=== PATIENT | male | born 1990 | race Two or more races ===

== ENCOUNTER 2017-07-10 03:41 | Emergency (ER) | payer SELFPAY ==
[~2017-07-10] VITALS: Ht 167.6 cm; Wt 63.5 kg
[2017-07-10] MEDS ORDERED: HYDROmorphone 2 MG/ML VIAL IV ONE ×2 (04:00→06:00)
[2017-07-10] MEDS ORDERED: ONDANSETRON PF 4 MG/2 ML VIAL. IV ONE ×2 (04:00→06:00)
[2017-07-10] MEDS ORDERED: IV NORMAL SALINE 1000ML BAG 1,000 ML IV ONE ×2 (04:00→06:00)
[2017-07-10 04:22] LABS: BASO % 0 % (0-3); EOS % 1 % (0-3); HEMATOCRIT 47.8 % (39.0-53.0); HEMOGLOBIN 16.1 g/dL (13.0-17.5); LYMPH # 3.3 x10^3/uL (1.0-4.8); LYMPH % 40 % (24-48); MEAN CORPUSCULAR HEMOGLOBIN 31 pg (25-35); MEAN CORPUSCULAR HGB CONC 34 g/dL (31-37); MEAN CORPUSCULAR VOLUME 91 fL (79-100); MONO % 8 % (0-9); NEUT % 50 % (31-73); PLATELET COUNT 239 x10^3/uL (140-400); RED BLOOD COUNT 5.26 x10^6/uL (4.30-5.70); RED CELL DISTRIBUTION WIDTH 13.4 % (11.5-14.5); WHITE BLOOD COUNT 8.3 x10^3/uL (4.0-11.0)
[2017-07-10 04:40] LABS: CREATININE 1.2 mg/dL (0.7-1.3); GFR 73.2; POTASSIUM 3.5 mmol/L (3.5-5.1)
--- NOTE | 2017-07-10 04:44 | RAD ---
INDICATION: Testicular pain. COMPARISON: None. TECHNIQUE: Grayscale, color and spectral doppler ultrasound images obtained of the scrotum. FINDINGS: Right Testicle: 31 x 52 x 18 mm. Vascular flow is identified. Left Testicle: 47 x 19 x 31 mm. Vascular flow is identified. During the exam the testicles were retracting towards inguinal canal intermittently. IMPRESSION: 1. Vascular flow is identified to the bilateral testicles. Electronically signed by: Daniel Rehman MD (07/10/2017 4:41 AM) [facility]
[2017-07-10 05:23] LABS: BILIRUBIN,URINE NEGATIVE (NEG); GLUCOSE,URINE NEGATIVE (NEG); NITRITE,URINE NEGATIVE (NEG); PH,URINE 5.5; PROTEIN,URINE NEGATIVE (NEG-TRACE); UROBILINOGEN,URINE 0.2 mg/dL (0.2 mg/dL)
[2017-07-10 05:42] LABS: BACTERIA,URINE FEW /HPF (0-FEW); RBC,URINE TNTC /HPF (0-2)
[2017-07-10 05:43] LABS: SQUAMOUS EPITHELIAL CELL,UR FEW /LPF
[2017-07-10] MEDS ORDERED: KETOROLAC 15 MG/ML VIAL. IV ONE (06:00)
--- NOTE | 2017-07-10 06:19 | PHYS DOC ---
Past Medical History Past Medical History: No Pertinent History Past Surgical History: No Surgical History Alcohol Use: None Drug Use: None Adult General Chief Complaint Chief Complaint: TESTICULAR PAIN OR INJURY HPI HPI Patient is a 26 year old healthy gentleman who presents to the ER today complaining of left testicular pain that started approximately 1 hour prior to arrival. Patient reports that the pain is constant. Patient denies any other symptomatology other than nausea and vomiting times one. Patient has any fevers shakes chills. Patient has any cough cold or runny nose. Patient denies any dysuria frequency urgency or hematuria. Patient denies any trauma to his testicles. Patient denies any penile discharge. Patient reports his last sexual activity was approximate 4 month ago. Patient reports one partner in the last 6 months. Patient has any fevers. Patient denies any history of hypertension, diabetes, liver, lung, kidney problems. Patient reports no history of kidney stones in the past. Patient's physical exam the ER significant for normal testicular exam. Patient' s testes are descended. There is no inguinal hernia. Testes are both vertical. Normal cremasteric reflex. Normal (prehn sign. Review of systems: Constitutional: Denies fever or chills Eyes: Denies change in visual acuity, redness, or eye pain HENT: Denies nasal congestion or sore throat All other review systems are negative except as documented in the history of present illness portion. Physical exam: Constitutional: no acute distress, non-toxic appearance. HENT: Normocephalic, atraumatic, bilateral external ears normal, oropharynx moist, no oral exudates, nose normal. Eyes: PERRLA, EOMI, conjunctiva normal, no discharge. Neck: Normal range of motion, no tenderness, supple, no stridor Cardiovascular:Heart rate regular rhythm Lungs & Thorax: Bilateral breath sounds clear to auscultation Abdomen: Soft nondistended no rebound or guarding no tenderness at McBurney's point, Galindo's sign, patient has normal active bowel sounds, Skin: Warm, dry, no erythema, no rash. Back: No tenderness, no CVA tenderness. Extremities: No tenderness, no cyanosis, no clubbing, ROM intact, no edema. Neurologic: Alert and oriented X 3, normal motor function, normal sensory function, no focal deficits noted. Psychologic: Affect normal, judgement normal, mood normal. Patient's ultrasound is testes which were unremarkable. There was good vascular flow to both testicles. Patient received Dilaudid 1 mg IV to assist him with pain prior to the ultrasound. Reevaluation of the patient after the ultrasound patient is still having a significant amount of pain however now he reports the pain is more in the left lower quadrant as well as his left testicle. Assessment and plan this is a 26-year-old gentleman who presents here today complaining of left testicular pain medication started acutely tonight. Patient' s ultrasound did not reveal any evidence of torsion. Patient had a UA which revealed large amount of red blood cells. Given his symptoms, the RBCs in his urine, the pain is left lower quadrant, in the normal ultrasound of his testes I believe that this patient most likely now has renal colic as the cause of his discomfort. A CT scan of his abdomen pelvis has been ordered. Patient be given a second round of Dilaudid and Toradol and we'll continue to hydrate him. Current Medications Current Medications Current Medications Medications (Trade) Dose Ordered Sig/Marko Start Time Stop Time Status Last Admin Dose Admin Hydromorphone HCl (Dilaudid) 1 mg 1X ONCE 07/10/17 06:00 07/10/17 06:04 DC 07/10/17 06:35 1 MG Ketorolac Tromethamine (Toradol) 15 mg 1X ONCE 07/10/17 06:00 07/10/17 06:04 DC 07/10/17 06:31 15 MG Ondansetron HCl (Zofran) 4 mg 1X ONCE 07/10/17 06:00 07/10/17 06:04 DC 07/10/17 06:33 4 MG Sodium Chloride 1,000 ml @ 1,000 mls/hr 1X ONCE 07/10/17 06:00 07/10/17 06:59 DC 07/10/17 06:44 1,000 MLS/HR Tamsulosin HCl (Flomax) 0.4 mg 1X ONCE 07/10/17 07:30 07/10/17 07:31 DC 07/10/17 07:33 0.4 MG Allergies Allergies Allergies Coded Allergies Type Severity Reaction Last Updated Verified No Known Drug Allergies 07/10/17 No Current Patient Data Vital Signs Vital Signs Date Time Temp Pulse Resp B/P (MAP) Pulse Ox O2 Delivery O2 Flow Rate FiO2 8/12/17 07:30 82 16 115/67 (83) 95 07/10/17 06:30 Room Air 07/10/17 03:46 97.7 97.7 Lab Values Laboratory Tests Test 07/10/17 04:00 07/10/17 05:15 White Blood Count 8.3 x10^3/uL (4.0-11.0) Red Blood Count 5.26 x10^6/uL (4.30-5.70) Hemoglobin 16.1 g/dL (13.0-17.5) Hematocrit 47.8 % (39.0-53.0) Mean Corpuscular Volume 91 fL (79-100) Mean Corpuscular Hemoglobin 31 pg (25-35) Mean Corpuscular Hemoglobin Concent 34 g/dL (31-37) Red Cell Distribution Width 13.4 % (11.5-14.5) Platelet Count 239 x10^3/uL (140-400) Neutrophils (%) (Auto) 50 % (31-73) Lymphocytes (%) (Auto) 40 % (24-48) Monocytes (%) (Auto) 8 % (0-9) Eosinophils (%) (Auto) 1 % (0-3) Basophils (%) (Auto) 0 % (0-3) Neutrophils # (Auto) 4.2 x10^3uL (1.8-7.7) Lymphocytes # (Auto) 3.3 x10^3/uL (1.0-4.8) Monocytes # (Auto) 0.7 x10^3/uL (0.0-1.1) Eosinophils # (Auto) 0.1 x10^3/uL (0.0-0.7) Basophils # (Auto) 0.0 x10^3/uL (0.0-0.2) Sodium Level 142 mmol/L (136-145) Potassium Level 3.5 mmol/L (3.5-5.1) Chloride Level 103 mmol/L (98-107) Carbon Dioxide Level 31 mmol/L (21-32) Anion Gap 8 (6-14) Blood Urea Nitrogen 13 mg/dL (8-26) Creatinine 1.2 mg/dL (0.7-1.3) Estimated GFR (Cockcroft-Gault) 73.2 Glucose Level 137 mg/dL (70-99) H Calcium Level 9.0 mg/dL (8.5-10.1) Urine Collection Type Unknown Urine Color Yellow Urine Clarity Clear Urine pH 5.5 Urine Specific [place] 1.020 Urine Protein Negative mg/dL (NEG-TRACE) Urine Glucose (UA) Negative mg/dL (NEG) Urine Ketones (Stick) Negative mg/dL (NEG) Urine Blood Large (NEG) Urine Nitrite Negative (NEG) Urine Bilirubin Negative (NEG) Urine Urobilinogen Dipstick 0.2 mg/dL (0.2 mg/dL) Urine Leukocyte Esterase Negative (NEG) Urine RBC Tntc /HPF (0-2) Urine WBC 1-4 /HPF (0-4) Urine Squamous Epithelial Cells Few /LPF Urine Bacteria Few /HPF (0-FEW) Urine Mucus Mod /LPF Laboratory Tests 07/10/17 04:00 Laboratory Tests 07/10/17 04:00 EKG EKG [] Radiology/Procedures Radiology/Procedures [] Course & Med Decision Making Course & Med Decision Making Pertinent Labs and Imaging studies reviewed. (See chart for details) 0600 the patient was signed out to me by Dr. Calhoun , we discussed the case. We are waiting on CT scan results. Testicular ultrasound was normal. CT scan read by the radiologist shows a 2 mm distal left ureter stone with hydro -. I feel this finding does explain the patient's symptoms. 0720 I revisited the patient. He states his pain is gone. We discussed his diagnosis and discussed the plan. He is stable for discharge. See instructions for plan. [] Dragon Disclaimer Dragon Disclaimer This electronic medical record was generated, in whole or in part, using a voice recognition dictation system. Departure Departure Impression: Primary Impression: Left ureteral stone Additional Impression: Ureteral colic Disposition: HOME, SELF-CARE Condition: IMPROVED Referrals: NO PCP (PCP) Patient Instructions: Kidney Stones, [id number] Additional Instructions: Your pain was caused by a 2 mm kidney stone which may have already passed into your bladder, or may still be waiting to pass. It most likely will pass. It takes a few hours or days for stone to pass. Strain all of your urine until it does pass to make sure that it does. It will look like a small piece of sand. You had your first dose of Flomax here in the emergency department. This medicine is dosed every 24 hours. Continue to take the Flomax every 24 hours until the stone passes. Ibuprofen 800 mg every 8 hours which will help with pain and also help relax the muscle and let the stone pass. I prescribed hydrocodone for more severe pain if needed. It is safe to combine this with ibuprofen and Flomax if you need to. Take this only if needed. It is an opiate. It will cause sedation and constipation. Do not take while driving. If you have fever, chills, vomiting, pain that is worse than tolerated, return to emergency. Make a follow-up appointment with a urologist. We do not have a urologist here [facility] at this time. Scripts Ibuprofen (IBUPROFEN) 800 Mg Tablet 800 MG PO Q8HRS Y for kidney stone pain, #30 TAB Prov: DANIELLA FINK MD 07/10/17 Tamsulosin Hcl (FLOMAX) 0.4 Mg Cap.er.24h 1 CAP PO DAILY for kidney stone pain, #14 CAP 11 Refills Take once every 24 hours until your kidney stone passes Prov: DANIELLA FINK MD 07/10/17 Hydrocodone/Apap 5-325 (NORCO 5-325 TABLET) 1 Each Tablet 1-2 TAB PO Q4-6HRS for PAIN, #10 TAB Prov: DANIELLA FINK MD 07/10/17 Problem Qualifiers MATEO CALHOUN MD Jul 10, 2017 06:19 DANIELLA FINK MD Jul 10, 2017 07:38
--- NOTE | 2017-07-10 06:44 | RAD ---
INDICATION: hematuia; left side pain COMPARISON: None. TECHNIQUE: Axial CT images were obtained through the abdomen and pelvis without intravenous contrast. Limited assessment of solid organ structures and vasculature secondary to lack of intravenous contrast. One or more of the following individualized dose reduction techniques were utilized for this examination: 1. Automated exposure control; 2. Adjustment of the mA and/or kV according to patient size; 3. Use of iterative reconstruction technique. FINDINGS: Abdomen: Chest Base: Sub-4 mm nodule left lung base. Given the patient's age this is most likely benign unless they have a history of neoplasm. Vessels: No abdominal aortic aneurysm. Liver/Biliary: No intrahepatic biliary duct dilation. Pancreas: No peripancreatic edema. Spleen: Normal. Kidneys/Adrenal: Left-sided hydronephrosis and perinephric edema with 2 mm left distal ureter stone. There are additional nonobstructive right renal stones measuring up to 6 mm. GI: No definite periappendiceal inflammation. No dilated loops of bowel to suggest obstruction. Probable Schmorl's node L5. Pelvis: Bladder: No definite adjacent inflammation. IMPRESSION: 1. Left-sided hydronephrosis with left distal ureter stone. 2. Nonobstructive right renal stone. Electronically signed by: Daniel Rehman MD (07/10/2017 6:41 AM) [facility]
[2017-07-10 07:30] VITALS: BP 115/67
[2017-07-10] MEDS ORDERED: TAMSULOSIN 0.4 MG CAP.ER.24H. PO ONE (07:30)
[2017-07-10] MEDS ORDERED: HYDR-971 PO (07:38)
[2017-07-10] MEDS ORDERED: IBUP-1060 PO (07:38)
[2017-07-10] MEDS ORDERED: TAMS0.4C97 PO (07:38)
== END 2017-07-10 07:49 | disposition home or self-care (01) ==
LOC: ER 03:41
DX: N20.1 Calculus of ureter (principal)
CPT/HCPCS: 36415; 74176; 76870; 80048; 81001; 85025; 96361; 96374; 96375; 96376; 99285; J1170; J1885; J2405; J7030